=== PATIENT | female | born 1985 | race American Indian/Alaskan Native ===

== ENCOUNTER 2017-07-25 15:01 | Emergency (ER) | payer BC, MEDICAID ==
--- NOTE | 2017-07-25 16:55 | Emergency Department Report ---
ED Female HPI - General Chief complaint: Abdominal Pain Stated complaint: ABDOMINAL PAIN Time Seen by Provider: 07/25/17 16:41 Source: patient Mode of arrival: Ambulatory Limitations: No Limitations - History of Present Illness Initial comments: Patient is 31 years old female 4 para 2 and one miscarriage, presented today with 2 day history of lower abdominal pain cramping in nature. Patient denied any vaginal bleeding. She stated that she missed her period and had a positive home test. MD Complaint: pelvic pain Severity: moderate Severity scale (0 -10): 5 Quality: cramping Consistency: intermittent Worsens with: urination Are you Now?: Yes Associated Symptoms: abdominal pain. denies: vaginal bleeding, nausea/vomiting , dysuria, hematuria, shortness of breath - Related Data Sexually active: Yes Previous Rx's Medication Instructions Recorded Last Taken Type HYDROcodone/APAP 7.5-325 [[place] 1 each PO Q4-6H PRN #20 tablet 08/08/15 Unknown Rx 7.5/325] Ondansetron [Zofran Odt] 4 mg SL Q6H PRN #8 tab.rapdis 08/08/15 Unknown Rx Nitrofurantoin [place]/M-Cryst 100 mg PO Q12HR #14 capsule 07/25/17 Unknown Rx [Macrobid CAP] Allergies Allergy/AdvReac Type Severity Reaction Status Date / Time No Known Allergies Allergy Verified 08/07/15 20:27 ED Review of Systems ROS: Stated complaint: ABDOMINAL PAIN Other details as noted in HPI Comment: All other systems reviewed and negative Constitutional: denies: chills, fever Respiratory: denies: cough, orthopnea, shortness of breath, SOB with exertion, SOB at rest Cardiovascular: denies: chest pain, palpitations, dyspnea on exertion, edema, syncope, paroxysmal nocturnal dyspnea Gastrointestinal: abdominal pain. denies: nausea, vomiting Musculoskeletal: denies: back pain Neurological: denies: headache, weakness, numbness, paresthesias ED Past Medical Hx - Social History Smoking Status: Former Smoker Substance Use Type: None - Medications Home Medications: Home Medications Medication Instructions Recorded Confirmed Last Taken Type HYDROcodone/APAP 7.5-325 [[place] 1 each PO Q4-6H PRN #20 tablet 08/08/15 Unknown Rx 7.5/325] Ondansetron [Zofran Odt] 4 mg SL Q6H PRN #8 tab.rapdis 08/08/15 Unknown Rx Nitrofurantoin [place]/M-Cryst 100 mg PO Q12HR #14 capsule 07/25/17 Unknown Rx [Macrobid CAP] ED Physical Exam - General Limitations: No Limitations General appearance: alert, in no apparent distress - Head Head exam: Present: atraumatic, normocephalic, normal inspection - Eye Eye exam: Present: normal appearance - ENT ENT exam: Present: normal exam, normal orophraynx, mucous membranes moist - Neck Neck exam: Present: normal inspection, full ROM. Absent: tenderness, meningismus - Respiratory Respiratory exam: Present: normal lung sounds bilaterally - Cardiovascular Cardiovascular Exam: Present: regular rate, normal rhythm, normal heart sounds - GI/Abdominal GI/Abdominal exam: Present: soft, tenderness (suprapubic tenderness), normal bowel sounds. Absent: distended, guarding, rebound, rigid, organomegaly, mass, bruit, pulsatile mass, hernia - Extremities Exam Extremities exam: Present: normal inspection, full ROM, normal capillary refill - Back Exam Back exam: Present: normal inspection, full ROM. Absent: tenderness, CVA tenderness (R), CVA tenderness (L), muscle spasm, paraspinal tenderness - Neurological Exam Neurological exam: Present: alert, oriented X3, CN II-XII intact, normal gait - Skin Skin exam: Present: warm, intact, normal color. Absent: cyanosis, diaphoretic, erythema, urticaria ED Course Vital Signs 07/25/17 07/25/17 07/25/17 15:05 17:27 18:15 Temperature 98.4 F 98.4 F Pulse Rate 85 81 Respiratory 20 18 20 Rate Blood Pressure 128/79 Blood Pressure 111/75 [Right] O2 Sat by Pulse 99 99 100 Oximetry ED Medical Decision Making - Lab Data Result diagrams: 07/25/17 17:11 07/25/17 17:11 Critical care attestation.: If time is entered above; I have spent that time in minutes in the direct care of this critically ill patient, excluding procedure time. ED Disposition Clinical Impression: Abdominal pain affecting , UTI (urinary tract infection) during Disposition: DC- TO HOME OR SELFCARE Is pt being admited?: No Condition: Stable Instructions: (ED), Urinary Tract Infection in Women (ED), Abdominal Pain (ED), Abdominal Pain in (ED) Prescriptions: Nitrofurantoin [place]/M-Cryst [Macrobid CAP] 100 mg PO Q12HR #14 capsule Referrals: RAMILA WHEELER MD [Staff Physician] - 3-5 Days
[2017-07-25 17:28] VITALS: BP 111/75
[2017-07-25 17:31] LABS: Basophils % (Auto) 0.4 % (0.0-1.8); Eosinophils % (Auto) 1.5 % (0.0-4.3); Hematocrit 34.5 % (30.3-42.9); Mean Corpuscular HGB Conc 32 % (30-34); Mean Corpuscular Volume 75 fl (79-97); Platelet Count 307 K/mm3 (140-440); Red Blood Count 4.63 M/mm3 (3.65-5.03); Red Cell Distribution Width 15.1 % (13.2-15.2); White Blood Count 7.6 K/mm3 (4.5-11.0)
[2017-07-25 17:43] LABS: Mean Corpuscular Hemoglobin 24 pg (28-32)
[2017-07-25 17:43] LABS: Bacteria,Urine 2+ /HPF (Negative); Bilirubin,Urine NEG (Negative); Blood,Urine NEG (Negative); Ketones,Urine NEG (Negative); Leukocyte Esterase,Urine TR (Negative); Mucus,Urine 1+ /HPF; Nitrite,Urine POS (Negative); Protein,Urine <15 mg/dL mg/dL (Negative)
[2017-07-25 17:45] LABS: Alanine Aminotransferase 15 units/L (7-56); Albumin 4.2 g/dL (3.9-5); Albumin/Globulin Ratio 1.8 %; Alkaline Phosphatase 52 units/L (35-129); Anion Gap 17 mmol/L; BUN/Creatinine Ratio 30; Bilirubin,Total < 0.20 mg/dL (0.1-1.2); Blood Urea Nitrogen 15 mg/dL (7-17); Carbon Dioxide 23 mmol/L (22-30); Chloride 101.7 mmol/L (98-107); Glucose 98 mg/dL (65-100); Sodium 138 mmol/L (137-145); Total Protein 6.6 g/dL (6.3-8.2)
--- NOTE | 2017-07-25 20:56 | Ultrasound Report ---
FINAL REPORT EXAM: US TRANSVAGINAL HISTORY: abdominal pain TECHNIQUE: Ultrasound pelvis transvaginal PRIORS: None. FINDINGS: There is a sac within the uterus measuring 1.8 centimeters corresponding to estimated gestational age of 6 weeks 5 days by sac size. No definitive pole is identified. There is a small echogenic structure which may reflect a yolk sac. Right ovary is 3.1 x 1.1 x 2.1 centimeters Left ovary is 4.4 x 2.5 x 4.1 centimeters. Within the left ovary there is a small slightly complex cystic focus likely involuting cyst. No free fluid identified. IMPRESSION: And a gestational sac within the uterus with probable yolk sac identified likely very early gestation. Continued followup recommended
--- NOTE | 2017-07-25 20:58 | Ultrasound Report ---
FINAL REPORT EXAM: US OB < = 14 WEEKS FETUS HISTORY: abdominal pain TECHNIQUE: Ultrasound pelvis transabdominal obstetrical PRIORS: Correlated with today's transvaginal exam FINDINGS: There is a sac within the uterus measuring 1.8 centimeters corresponding to estimated gestational age of 6 weeks 5 days by sac size. No definitive pole is identified. There is a small echogenic structure which may reflect a yolk sac. Right ovary is 3.1 x 1.1 x 2.1 centimeters Left ovary is 4.4 x 2.5 x 4.1 centimeters. Within the left ovary there is a small slightly complex cystic focus likely involuting cyst. No free fluid identified. IMPRESSION: gestational sac within the uterus with probable yolk sac identified likely very early gestation. Continued followup recommended
== END 2017-07-25 20:26 | disposition home or self-care (01) ==
LOC: ED 15:01
DX: O23.41 Unspecified infection of urinary tract in pregnancy, first trimester (principal); Z3A.01 Less than 8 weeks gestation of pregnancy; Z87.891 Personal history of nicotine dependence
CPT/HCPCS: 36415; 76801; 76817; 80053; 81001; 84702; 85025; 86900; 86901; 99284

== ENCOUNTER 2018-06-02 17:22 | Emergency (ER) | payer SELFPAY ==
[2018-06-02 17:35] VITALS: BP 123/81
[2018-06-02 18:47] LABS: Basophils % (Auto) 0.7 % (0.0-1.8); Eosinophils # (Auto) 0.1 K/mm3 (0.0-0.4); Eosinophils % (Auto) 1.9 % (0.0-4.3); Hematocrit 36.1 % (30.3-42.9); Hemoglobin 11.9 gm/dl (10.1-14.3); Lymphocytes # (Auto) 1.9 K/mm3 (1.2-5.4); Lymphocytes % (Auto) 29.4 % (13.4-35.0); Mean Corpuscular HGB Conc 33 % (30-34); Mean Corpuscular Volume 76 fl (79-97); Monocytes # (Auto) 0.4 K/mm3 (0.0-0.8); Monocytes % (Auto) 6.2 % (0.0-7.3); Platelet Count 292 K/mm3 (140-440); Red Blood Count 4.76 M/mm3 (3.65-5.03); Red Cell Distribution Width 14.9 % (13.2-15.2)
[2018-06-02 18:48] LABS: Mean Corpuscular Hemoglobin 25 pg (28-32)
== END 2018-06-02 21:06 | disposition left against medical advice (07) ==
LOC: ED 17:22
DX: O26.891 Other specified pregnancy related conditions, first trimester (principal); R10.2 Pelvic and perineal pain; Z53.21 Procedure and treatment not carried out due to patient leaving prior to being seen by health care provider
CPT/HCPCS: 36415; 83880; 84702; 85025

== ENCOUNTER 2018-08-28 19:01 | Emergency (ER) | payer MEDICAID, OTHER ==
[2018-08-28 19:28] VITALS: BP 132/87
[2018-08-28] MEDS ORDERED: LIDOCAINE VISCOUS 2% PO ONE (20:08)
[2018-08-28] MEDS ORDERED: ALUM-MAG HYDROX-SIMETH 200-200-20MG/5ML PO ONE (20:08)
--- NOTE | 2018-08-28 20:25 | Emergency Department Report ---
ED Abdominal Pain HPI - General Chief Complaint: Abdominal Pain Stated Complaint: STOMACH PAIN Time Seen by Provider: 08/28/18 20:07 Source: patient Mode of arrival: Ambulatory Limitations: No Limitations - History of Present Illness Initial Comments: Patient briefly emergency female who presents for intermittent abdominal pain for the past 6 months post pain described as 4/10 pressure radiating from abdomen epigastric region there is associated nausea no vomiting, no fever no chills, endorse intermittent constipation, no dysuria frequency or urgency symptoms relieved by nothing, symptoms exacerbated by rest. Onset/Timin -: month(s) Location: diffuse Radiation: epigastric Migration to: epigastric Severity: moderate Severity scale (0 -10): 4 Quality: aching, fullness Consistency: intermittent Improves With: rest Worsens With: eating Associated Symptoms: nausea, constipation - Related Data LMP (females 10-50): last week Previous Rx's Medication Instructions Recorded Last Taken Type HYDROcodone/APAP 7.5-325 [[place] 1 each PO Q4-6H PRN #20 tablet 08/08/15 Unknown Rx 7.5/325] Ondansetron [Zofran Odt] 4 mg SL Q6H PRN #8 tab.rapdis 08/08/15 Unknown Rx Nitrofurantoin [place]/M-Cryst 100 mg PO Q12HR #14 capsule 07/25/17 Unknown Rx [Macrobid CAP] Acetaminophen [Tylenol] 650 mg PO QID PRN #30 capsule 08/28/18 Unknown Rx Ondansetron [Zofran Odt] 4 mg PO Q8HR PRN #12 tab.rapdis 08/28/18 Unknown Rx Allergies Allergy/AdvReac Type Severity Reaction Status Date / Time No Known Allergies Allergy Verified 06/02/18 17:33 ED Review of Systems ROS: Stated complaint: STOMACH PAIN Other details as noted in HPI Constitutional: denies: chills, fever Eyes: denies: eye pain, eye discharge, vision change ENT: denies: ear pain, throat pain Respiratory: denies: cough, shortness of breath, wheezing Cardiovascular: denies: chest pain, palpitations Endocrine: no symptoms reported Gastrointestinal: abdominal pain, nausea, constipation Genitourinary: denies: urgency, dysuria, discharge Musculoskeletal: denies: back pain, joint swelling, arthralgia Skin: denies: rash, lesions Neurological: denies: headache, weakness, paresthesias Psychiatric: denies: anxiety, depression Hematological/Lymphatic: denies: easy bleeding, easy bruising ED Past Medical Hx - Past Medical History Previous Medical History?: No - Surgical History Past Surgical History?: No - Social History Smoking Status: Current Every Day Smoker Substance Use Type: Alcohol - Medications Home Medications: Home Medications Medication Instructions Recorded Confirmed Last Taken Type HYDROcodone/APAP 7.5-325 [[place] 1 each PO Q4-6H PRN #20 tablet 08/08/15 Unknown Rx 7.5/325] Ondansetron [Zofran Odt] 4 mg SL Q6H PRN #8 tab.rapdis 08/08/15 Unknown Rx Nitrofurantoin [place]/M-Cryst 100 mg PO Q12HR #14 capsule 07/25/17 Unknown Rx [Macrobid CAP] Acetaminophen [Tylenol] 650 mg PO QID PRN #30 capsule 08/28/18 Unknown Rx Ondansetron [Zofran Odt] 4 mg PO Q8HR PRN #12 tab.rapdis 08/28/18 Unknown Rx ED Physical Exam - General Limitations: No Limitations General appearance: alert, in no apparent distress - Head Head exam: Present: atraumatic, normocephalic - Eye Eye exam: Present: normal appearance, PERRL, EOMI Pupils: Present: normal accommodation - ENT ENT exam: Present: mucous membranes moist - Neck Neck exam: Present: normal inspection, full ROM - Respiratory Respiratory exam: Present: normal lung sounds bilaterally. Absent: respiratory distress, wheezes, stridor, chest wall tenderness - Cardiovascular Cardiovascular Exam: Present: regular rate, normal rhythm, normal heart sounds. Absent: systolic murmur, diastolic murmur, rubs, gallop - GI/Abdominal GI/Abdominal exam: Present: soft, tenderness (epigastric mild tenderness ), normal bowel sounds. Absent: guarding, rebound, rigid, bruit, hernia - Rectal Rectal exam: Present: deferred - Extremities Exam Extremities exam: Present: normal inspection, full ROM - Back Exam Back exam: Present: normal inspection, full ROM. Absent: CVA tenderness (R), CVA tenderness (L) - Neurological Exam Neurological exam: Present: alert, oriented X3, CN II-XII intact, normal gait - Psychiatric Psychiatric exam: Present: normal affect, normal mood - Skin Skin exam: Present: warm, dry, intact, normal color. Absent: rash ED Course Vital Signs 08/28/18 19:21 Temperature 98 F Pulse Rate 87 Respiratory 16 Rate Blood Pressure 132/87 O2 Sat by Pulse 100 Oximetry ED Medical Decision Making - Lab Data Result diagrams: 08/28/18 20:25 08/28/18 20:25 - Radiology Data Radiology results: report reviewed, image reviewed INAL REPORT PROCEDURE: US OB lt; = 14 WEEKS FETUS TECHNIQUE: Real-time transabdominal sonography of the uterus, placenta, amniotic fluid, adnexa, and fetus was performed with image documentation. Measurements were obtained to determine age/size. M-mode Doppler was used to document heartbeat. CPT 58797 HISTORY: abd pain COMPARISON: No prior studies are available for comparison. FINDINGS: CRL: 12.9mm, which corresponds to a gestational age of: 7weeks, 4 days. Yolk Sac: Normal. Embryonic Cardiac Activity: 142 beats per minute, regular Gestational Sac: Normal. Right Ovary: 2.3 x 1.3 x 1.6 centimeters with normal echotexture Left Ovary: 4.6 x 3.8 x 3.9 centimeters with normal echotexture Estimated delivery date: 04/12/2019 IMPRESSION: 1. Single living intrauterine gestation at approximately 7 weeks and 4 days 2. EDC by US 04/12/2019. - Medical Decision Making Ultrasound single IUP 7 weeks 2 days heart rate 142 bpm sinus symptoms are somewhat improved is no vaginal bleeding patient will follow up with [facility] in the next 2-3 days the DCR O when necessary Zofran Tylenol patient verbalizes agreement and understanding with same patient DC'd home in stable condition at this time Critical care attestation.: If time is entered above; I have spent that time in minutes in the direct care of this critically ill patient, excluding procedure time. ED Disposition Clinical Impression: Abdominal pain during Qualifiers: Trimester: first trimester Qualified Code(s): O26.891 - Other specified related conditions, first trimester; R10.9 - Unspecified abdominal pain Qualifiers: Weeks of gestation: less than 8 weeks Qualified Code(s): Z3A.01 - Less than 8 weeks gestation of Disposition: DC-01 TO HOME OR SELFCARE Is pt being admited?: No Does the pt Need Aspirin: No Condition: Stable Instructions: Abdominal Pain (ED) Prescriptions: Acetaminophen [Tylenol] 650 mg PO QID PRN #30 capsule PRN Reason: pain Ondansetron [Zofran Odt] 4 mg PO Q8HR PRN #12 tab.rapdis PRN Reason: Nausea And Vomiting Referrals: ROJELIO NAPOLES MD [Staff Physician] - 3-5 Days [facility] [Provider Group] - 3-5 Days Forms: Work/School Release Form(ED) Time of Disposition: 22:35
[2018-08-28 20:37] LABS: Basophils % (Auto) 0.5 % (0.0-1.8); Eosinophils # (Auto) 0.1 K/mm3 (0.0-0.4); Hematocrit 37.6 % (30.3-42.9); Hemoglobin 12.1 gm/dl (10.1-14.3); Lymphocytes # (Auto) 1.7 K/mm3 (1.2-5.4); Lymphocytes % (Auto) 25.5 % (13.4-35.0); Mean Corpuscular HGB Conc 32 % (30-34); Mean Corpuscular Volume 77 fl (79-97); Monocytes # (Auto) 0.4 K/mm3 (0.0-0.8); Monocytes % (Auto) 6.1 % (0.0-7.3); Platelet Count 282 K/mm3 (140-440); Red Cell Distribution Width 13.8 % (13.2-15.2)
[2018-08-28 20:38] LABS: Bilirubin,Urine NEG (Negative); Blood,Urine NEG (Negative); Color,Urine Yellow (Yellow); Mucus,Urine FEW /HPF; Protein,Urine <15 mg/dL mg/dL (Negative); Urobilinogen,Urine < 2.0 mg/dL (<2.0)
[2018-08-28 20:42] LABS: HCG Qualitative,Urine Positive (Negative)
[2018-08-28 21:14] LABS: Alanine Aminotransferase 19 units/L (7-56); Albumin 4.6 g/dL (3.9-5); BUN/Creatinine Ratio 13; Blood Urea Nitrogen 8 mg/dL (7-17); Calcium 9.5 mg/dL (8.4-10.2); Hemolysis Index 11
--- NOTE | 2018-08-28 22:15 | Ultrasound Report ---
FINAL REPORT PROCEDURE: US OB <= 14 WEEKS FETUS TECHNIQUE: Real-time transabdominal sonography of the uterus, placenta, amniotic fluid, adnexa, and fetus was performed with image documentation. Measurements were obtained to determine age/size. M-mode Doppler was used to document heartbeat. CPT 11660 HISTORY: abd pain COMPARISON: No prior studies are available for comparison. FINDINGS: CRL: 12.9mm, which corresponds to a gestational age of: 7weeks, 4 days. Yolk Sac: Normal. Embryonic Cardiac Activity: 142 beats per minute, regular Gestational Sac: Normal. Right Ovary: 2.3 x 1.3 x 1.6 centimeters with normal echotexture Left Ovary: 4.6 x 3.8 x 3.9 centimeters with normal echotexture Estimated delivery date: 04/12/2019 IMPRESSION: 1. Single living intrauterine gestation at approximately 7 weeks and 4 days 2. EDC by US 04/12/2019.
--- NOTE | 2018-08-28 22:15 | Ultrasound Report ---
FINAL REPORT PROCEDURE: US OB TRANSVAGINAL TECHNIQUE: Real-time transvaginal sonography of the uterus, placenta, amniotic fluid, adnexa, and fe tus was performed with image documentation. Measurements were obtained to determine age/size. M -mode Doppler was used to document heartbeat. CPT 55649 HISTORY: abd pain COMPARISON: No prior studies are available for comparison. FINDINGS: CRL: 12.9mm, which corresponds to a gestational age of: 7weeks, 4 days. Yolk Sac: Normal. Embryonic Cardiac Activity: 142 beats per minute, regular Gestational Sac: Normal. Right Ovary: 2.3 x 1.3 x 1.6 centimeters with normal echotexture Left Ovary: 4.6 x 3.8 x 3.9 centimeters with normal echotexture Estimated delivery date: 04/12/2019 IMPRESSION: 1. Single living intrauterine gestation at approximately 7 weeks and 4 days 2. EDC by US 04/12/2019.
== END 2018-08-28 22:47 | disposition home or self-care (01) ==
LOC: ED 19:01
DX: O26.891 Other specified pregnancy related conditions, first trimester (principal); R10.84 Generalized abdominal pain; R10.13 Epigastric pain; O99.331 Smoking (tobacco) complicating pregnancy, first trimester; F17.200 Nicotine dependence, unspecified, uncomplicated; Z3A.01 Less than 8 weeks gestation of pregnancy
CPT/HCPCS: 36415; 76801; 76817; 80053; 81001; 81025; 83690; 84702; 85025

== ENCOUNTER 2018-09-19 06:36 | Day surgery (SDC) | payer OTHER ==
[2018-09-19] MEDS ORDERED: DIPRIVAN 10 MG/ML IV ONE ×2 (07:20)
[2018-09-19] MEDS ORDERED: XYLOCAINE 2% INFILTRATI ONE (07:21)
[2018-09-19] MEDS ORDERED: WATER FOR IRRIG STERILE IR ONE (07:26)
[2018-09-19] MEDS ORDERED: VERSED ONE (07:41)
--- NOTE | 2018-09-19 07:53 | Anesthesia Consultation ---
Anesthesia Consult and Med Hx Date of service: 09/19/18 - Airway Anesthetic Teeth Evaluation: Good ROM Head & Neck: Adequate Mental/Hyoid Distance: Adequate Mallampati Class: Class I Intubation Access Assessment: Probably Good - Pulmonary Exam CTA: Yes - Cardiac Exam Cardiac Exam: RRR - Pre-Operative Health Status ASA Pre-Surgery Classification: ASA2 Proposed Anesthetic Plan: MAC - Pulmonary Hx Smoking: Yes (one pack will last 2 days) Hx Respiratory Symptoms: No - Cardiovascular System Hx Hypertension: No Hx Heart Attack/AMI: No Hx Cardia Arrhythmia: No - Central Nervous System Hx Neuromuscular Disorder: No Hx Psychiatric Problems: No - Gastrointestinal Hx Gastroesophageal Reflux Disease: No - Endocrine Hx Renal Disease: No Hx Liver Disease: No Hx Thyroid Disease: No - Hematic Hx Sickle Cell Disease: No - Other Systems Hx Alcohol Use: Yes Hx Substance Use: No Hx Obesity: No - Additional Comments Anesthesia Medical History Comments: No previous anesthesia, No FHAC
[2018-09-19] MEDS ORDERED: NACL 0.9% 1000 ML 1,000 ML IV SCH (08:00)
--- NOTE | 2018-09-19 08:44 | Procedure Note ---
Date of procedure: 09/19/18 Pre-op diagnosis: Epigastric Pain Post-op diagnosis: other Procedure: EGD with Biopsy Anesthesia: MAC Surgeon: NOE CLIFTON Estimated blood loss: minimal Pathology: list Specimen disposition: to lab Condition: stable Disposition: same day (Gastric Antral Erosion/ Mild to moderate Distal Erosive Esophagitis/ R/O Celiac Disease)
--- NOTE | 2018-09-19 09:12 | Operative Report ---
PROCEDURE: EGD with biopsy. INDICATIONS: This is a 32-year-old -[place] female in otherwise good health, but has a history of taking NSAID and Goody powders and also has a history of smoking, drinking alcohol as well as carbonated drinks. She does have a family history of cancer. The patient's mother had breast cancer. Lately, she has been having some epigastric pain and discomfort. EGD was done to assess and see whether the patient had any associated peptic ulcer disease. DESCRIPTION OF PROCEDURE: Procedure was done after getting informed consent with MAC anesthesia. Instrument was passed through the hypopharynx into the esophagus, which showed some [id number] distal erosive esophagitis. Biopsy was done from the distal esophagus to assess for the severity of the esophagitis. Stomach showed antral erosions, which were moderately severe. Photo documentation and biopsy was done from the gastric antrum as well as the anchor incisura and the gastric body to rule out for H. pylori and atrophic gastritis. The pylorus was patent. The duodenum and the first and second portion appeared normal. Biopsy was done from the second part to rule out for possible celiac disease. There was minimal bleeding associated with the biopsies. No complications associated with the procedure. ASSESSMENT: Epigastric pain, moderately severe antral erosion, gastritis, [id number] distal erosive esophagitis, rule out celiac disease. Again, there was minimal bleeding from the biopsy sites. No complications associated with the procedure. PLAN: To treat the patient with PPI and encourage the patient to refrain from smoking, the use of Goody powders, and NSAIDs and to avoid aspirin and aspirin-related products for the next several days and follow up in the office in 1-2 weeks' time. RN, Emely Estevez who was in the room throughout the entirety of the procedure. JOB# [id number] JASBIR/HILARY
[2018-09-19 09:25] VITALS: BP 140/94
--- NOTE | 2018-09-19 09:57 | Anesthesia Day of Surgery ---
Anesthesia Day of Surgery - Day of Surgery Patient Examined: Yes Patient H&P Reviewed: Yes Patient is NPO: Yes
--- NOTE | 2018-09-19 09:58 | Post Anesthesia Evaluation ---
- Post Anesthesia Evaluation Patient Participated: Yes Airway Patent: Yes Stable Respiratory Function: Yes Temp > 96.8F: Yes Pain Manageable: Yes Adequeate Hydration: Yes Anesthesia Complications: No
== END 2018-09-19 06:37 | disposition home or self-care (01) ==
LOC: GIO 06:36
DX: K29.50 Unspecified chronic gastritis without bleeding (principal); K21.0 Gastro-esophageal reflux disease with esophagitis; K31.9 Disease of stomach and duodenum, unspecified; K27.9 Peptic ulcer, site unspecified, unspecified as acute or chronic, without hemorrhage or perforation; F17.210 Nicotine dependence, cigarettes, uncomplicated; Z72.89 Other problems related to lifestyle; Z79.82 Long term (current) use of aspirin; Z79.899 Other long term (current) drug therapy; Z80.3 Family history of malignant neoplasm of breast
CPT/HCPCS: 43239; 81025; 88305; 88342; J2250; J2704; J7030

== ENCOUNTER 2021-05-27 11:32 | Emergency (ER) | payer OTHER ==
[2021-05-27] MEDS ORDERED: SODIUM CHLORIDE 0.9% 1000 ML 1,000 ML IV ONE ×2 (12:06→14:04)
[2021-05-27] MEDS ORDERED: KETOROLAC 30 MG/1 ML INJ IV ONE (12:06)
[2021-05-27] MEDS ORDERED: ACETAMINOPHEN 325 MG TAB PO ONE (12:06)
--- NOTE | 2021-05-27 12:06 | Emergency Department Report ---
ED Female HPI - General Chief complaint: Abdominal Pain Stated complaint: UTI FEELING COLD Time Seen by Provider: 05/27/21 11:48 Source: patient Mode of arrival: Ambulatory Limitations: No Limitations - History of Present Illness Initial comments: 35-year-old female presents to the ER today with complaints of UTI symptoms. Patient states that her symptoms started yesterday. She reports dysuria, urinary frequency and urgency. She reports chills today but she did not take her temperature to see if she had a fever. She reports pain in her suprapubic abdominal area. She denies any lower back pain or flank pain. She denies any nausea or vomiting. Her last menstrual cycle was last week. He states that has been a long time since she has had a UTI. She reports no additional symptoms at this time. MD Complaint: dysuria, pelvic pain -: Gradual, days(s) (1) - Related Data Previous Rx's Medication Instructions Recorded Last Taken Type Omeprazole/Sodium Bicarbonate 1 each PO DAILY 30 Days #30 capsule 09/19/18 Unknown Rx [Omeprazole-Bicarb 20-1,100 Cap] Ibuprofen [Motrin] 600 mg PO Q8H PRN #30 tablet 05/27/21 Unknown Rx cephALEXin [Keflex] 500 mg PO Q6HR #40 capsule 05/27/21 Unknown Rx Allergies Allergy/AdvReac Type Severity Reaction Status Date / Time No Known Allergies Allergy Verified 06/02/18 17:33 ED Review of Systems ROS: Stated complaint: UTI FEELING COLD Other details as noted in HPI Comment: All other systems reviewed and negative Constitutional: chills Respiratory: denies: cough, shortness of breath, SOB with exertion, SOB at rest, wheezing Cardiovascular: denies: chest pain, palpitations Gastrointestinal: abdominal pain. denies: nausea, vomiting, diarrhea, constipation, hematemesis, melena, hematochezia Genitourinary: urgency, dysuria, frequency. denies: hematuria, discharge, abnormal menses Musculoskeletal: denies: back pain, joint swelling, arthralgia Skin: denies: rash, lesions, change in color, change in hair/nails, pruritus Neurological: denies: headache, weakness, numbness, paresthesias, confusion, abnormal gait, vertigo Psychiatric: denies: anxiety, depression, auditory hallucinations, visual hallucinations, homicidal thoughts, suicidal thoughts ED Past Medical Hx - Past Medical History Previous Medical History?: No Hx Hypertension: No Hx Heart Attack/AMI: No Hx Liver Disease: No Hx Renal Disease: No Hx Sickle Cell Disease: No - Surgical History Past Surgical History?: No - Social History Smoking Status: Current Every Day Smoker - Medications Home Medications: Home Medications Medication Instructions Recorded Confirmed Last Taken Type Omeprazole/Sodium Bicarbonate 1 each PO DAILY 30 Days #30 capsule 09/19/18 Unknown Rx [Omeprazole-Bicarb 20-1,100 Cap] Ibuprofen [Motrin] 600 mg PO Q8H PRN #30 tablet 05/27/21 Unknown Rx cephALEXin [Keflex] 500 mg PO Q6HR #40 capsule 05/27/21 Unknown Rx ED Physical Exam - General Limitations: No Limitations General appearance: alert, in no apparent distress - Head Head exam: Present: atraumatic, normocephalic, normal inspection - Neck Neck exam: Present: normal inspection, full ROM. Absent: meningismus - Respiratory Respiratory exam: Present: normal lung sounds bilaterally. Absent: respiratory distress, wheezes, rales, rhonchi - Cardiovascular Cardiovascular Exam: Present: tachycardia, normal heart sounds - Neurological Exam Neurological exam: Present: alert, oriented X3, CN II-XII intact, normal gait - Psychiatric Psychiatric exam: Present: normal affect, normal mood - Skin Skin exam: Present: intact ED Course Vital Signs 05/27/21 05/27/21 05/27/21 11:39 12:44 13:52 Temperature 101.8 F H 99.2 F 99.4 F Pulse Rate 130 H 77 122 H Respiratory 16 14 14 Rate Blood Pressure 140/90 127/76 123/75 [Left] O2 Sat by Pulse 96 100 97 Oximetry 05/27/21 14:47 Temperature Pulse Rate 105 H Respiratory Rate Blood Pressure [Left] O2 Sat by Pulse Oximetry ED Medical Decision Making - Lab Data Result diagrams: 05/27/21 12:18 05/27/21 12:18 - Medical Decision Making 1516: Patient currently resting comfortably on the recliner. She reports feeling better after 2 L IV fluids and Toradol, and Tylenol. Her repeat vital signs shows much improvement of her heart rate and her temperature has improved and her blood pressure has remained stable. She is currently not toxic, or ill- appearing, and not in any severe distress. Labs reviewed -CBC shows very mild leukocytosis with a white count of 11, but otherwise unremarkable. CMP also unremarkable. Urinalysis positive for UTI. Lactic acid is normal. Suspect p atient symptoms related to pyelonephritis. I do not suspect that patient has an associated kidney stone, or renal abscess requiring a CT abdomen pelvis at this time. Do not suspect sepsis at this time. Given that she is feeling better, she is able to tolerate p.o., her vital signs are improving, and therefore at this time there is no indication for admission to the hospital. Patient will be treated on an outpatient basis at this time with oral antibiotics, pain meds and instructions to drink lots of water. Discussed all lab results, suspected diagnosis and treatment plan with patient. Also discussed worsening signs and symptoms with patient and if she develops any of the signs and symptoms to return immediately to the ER. Patient expressed understanding of all instructions and agree with plan. Patient stable at time of discharge. Critical care attestation.: If time is entered above; I have spent that time in minutes in the direct care of this critically ill patient, excluding procedure time. ED Disposition Clinical Impression: Pyelonephritis Disposition: 01 HOME / SELF CARE / HOMELESS Is pt being admited?: No Does the pt Need Aspirin: No Condition: Stable Instructions: Pyelonephritis, Adult, [id number], Abdominal Pain (ED) Additional Instructions: I recommend that you take the Keflex as prescribed and to completion. Take the ibuprofen as prescribed to help with any pain. It is important to drink lots of water. I recommend that she get a thermometer from [id number] to check your temperature. If you develop a fever, 100.5 or higher, you can take the ibuprofen and you can alternate with Tylenol which is every 4 hours. Return to the ER if at any point your symptoms worsen, with persistent fever, nausea and vomiting and inability to tolerate the antibiotics, worsening abdominal pain and development of any back pain. Otherwise follow-up closely with your PCP. Prescriptions: cephALEXin [Keflex] 500 mg PO Q6HR #40 capsule Ibuprofen [Motrin] 600 mg PO Q8H PRN #30 tablet PRN Reason: Pain Referrals: PRIMARY MD ALBERT [Primary Care Provider] - 3-5 Days MARY DURBIN MD [Staff Physician] - 3-5 Days Forms: Work/School Release Form(ED) Time of Disposition: 15:03
[2021-05-27 12:17] LABS: Bilirubin,Urine NEG (Negative); Blood,Urine LG (Negative); Color,Urine Amber (Yellow); Mucus,Urine FEW /HPF
[2021-05-27 12:18] LABS: Bacteria,Urine 1+ /HPF (Negative); WBC,Urine > 182.0 /HPF (0.0-6.0)
[2021-05-27 13:04] LABS: Hematocrit 35.8 % (30.3-42.9); Hemoglobin 11.5 gm/dl (10.1-14.3); Mean Corpuscular HGB Conc 32 % (30-34); Mean Corpuscular Volume 76 fl (79-97); Platelet Count 291 K/mm3 (140-440); Red Blood Count 4.73 M/mm3 (3.65-5.03); Red Cell Distribution Width 14.4 % (13.2-15.2)
[2021-05-27 13:23] LABS: Alanine Aminotransferase 10 units/L (7-56); Albumin 4.5 g/dL (3.9-5); Blood Urea Nitrogen 10 mg/dL (7-17); Calcium 9.4 mg/dL (8.4-10.2); Hemolysis Index 0
[2021-05-27 13:40] LABS: BUN/Creatinine Ratio 14
[2021-05-27 13:43] LABS: Total Cells Counted 100
[2021-05-27 13:44] LABS: Anisocytosis 1+; Hypochromasia 1+; Platelet Estimate Consistent w Auto
[2021-05-27 13:53] VITALS: BP 123/75
[2021-05-27] MEDS ORDERED: cefTRIAXone/NS 1 GM/50 ML 1 GM/50 ML BAG IV ONE (14:04)
== END 2021-05-27 15:15 | disposition home or self-care (01) ==
LOC: ED 11:32
DX: N12 Tubulo-interstitial nephritis, not specified as acute or chronic (principal); R68.83 Chills (without fever); R10.30 Lower abdominal pain, unspecified; N39.0 Urinary tract infection, site not specified; F17.200 Nicotine dependence, unspecified, uncomplicated
CPT/HCPCS: 36415; 80053; 81001; 82140; 84703; 85025; 87040; 96361; 96365; 96375; 99283; J0696; J1885; J7030; 85007